=== PATIENT | female | born 1955 | race Caucasian/White ===

== ENCOUNTER 2022-01-24 16:59 | Emergency (ER) | payer OTHER ==
[~2022-01-24] VITALS: Ht 170.2 cm; Wt 90.7 kg
[2022-01-24 17:22] LABS: HEMATOCRIT 34.4 % (31.2-41.9); MEAN CORPUSCULAR HEMOGLOBIN 32.5 uug (24.7-32.8); MEAN CORPUSCULAR VOLUME 95.1 fL (75.5-95.3); PLATELET COUNT (AUTO) 200 K/uL (179-408)
[2022-01-24 17:23] LABS: ABG BASE EXCESS 3.9 mmol/L; ABG HCO3 28.9 mmol/L; ABG PH 7.425 (7.350-7.450); ABG PO2 40.5 mmHg (75.0-100.0); ABG SITE RIGHT BRACHIAL; COHb 0.8 % (0.5-1.5); O2Hb 76.1 % (94.0-97.0); VENT MODE RA
--- NOTE | 2022-01-24 17:29 | NUR ---
Pt out for CT Head w/o contrast.
[2022-01-24 17:36] LABS: CARBON DIOXIDE 30 mmol/L (21-32); CHLORIDE 85 mmol/L (98-107); POTASSIUM 4.3 mmol/L (3.5-5.1); UREA NITROGEN, BLOOD 41 mg/dL (7-18)
[2022-01-24] MEDS ORDERED: INSU100V7 SQ (17:36)
[2022-01-24] MEDS ORDERED: LEVO175T7 PO (17:36)
[2022-01-24] MEDS ORDERED: FAMO20TA8 PO (17:36)
[2022-01-24] MEDS ORDERED: APIX5TAB4 PO (17:36)
[2022-01-24] MEDS ORDERED: SUCR1TAB31 PO (17:36)
[2022-01-24] MEDS ORDERED: ONDA-104 PO (17:36)
[2022-01-24] MEDS ORDERED: SEVE800T8 PO (17:36)
[2022-01-24] MEDS ORDERED: AMIO200T5 PO (17:36)
[2022-01-24] MEDS ORDERED: HYDR-4077 PO (17:36)
[2022-01-24] MEDS ORDERED: INSU200I SQ (17:36)
[2022-01-24] MEDS ORDERED: CLON1PAT2 TD (17:36)
[2022-01-24] MEDS ORDERED: METO25TA6 PO (17:36)
[2022-01-24] MEDS ORDERED: ATOR20TA PO (17:36)
[2022-01-24] MEDS ORDERED: NIFE10CA2 PO (17:36)
[2022-01-24] MEDS ORDERED: NITR0.4T48 SL (17:36)
[2022-01-24] MEDS ORDERED: CLON0.5T4 PO (17:36)
[2022-01-24] MEDS ORDERED: BENA20TA9 PO (17:36)
[2022-01-24 17:45] LABS: CREATININE 8.3 mg/dL (0.6-1.3); GLUCOSE 447 mg/dL (74-106)
--- NOTE | 2022-01-24 18:12 | NUR ---
Pt gets dialysis and is mostly anuric, so getting a sample will be delayed.
[2022-01-24] MEDS ORDERED: INSULIN REGULAR, HUMAN 300 UNIT/3 ML VIAL ONE (19:00)
[2022-01-24] MEDS ORDERED: INSULIN REGULAR, HUMAN 300 UNIT/3 ML VIAL IV ONE (19:00)
--- NOTE | 2022-01-24 19:25 | NUR ---
Endorsed to Agustin ENRIQUE.
[2022-01-24 23:31] VITALS: BP 120/70
--- NOTE | 2022-01-24 23:31 | NUR ---
Patient discharged to home in stable condition. Written and verbal after care instructions given. Patient verbalizes understanding of instructions. Stressed follow up or return to ER for worsening s/s.
== END 2022-01-24 23:33 | disposition home or self-care (01) ==
LOC: ER 17:01
DX: E11.22 Type 2 diabetes mellitus with diabetic chronic kidney disease (principal); E11.65 Type 2 diabetes mellitus with hyperglycemia; N18.6 End stage renal disease; Z99.2 Dependence on renal dialysis; E78.5 Hyperlipidemia, unspecified; I12.0 Hypertensive chronic kidney disease with stage 5 chronic kidney disease or end stage renal disease; Z85.038 Personal history of other malignant neoplasm of large intestine; Z79.01 Long term (current) use of anticoagulants; Z79.4 Long term (current) use of insulin; Z79.899 Other long term (current) drug therapy; Z79.890 Hormone replacement therapy; M81.0 Age-related osteoporosis without current pathological fracture; R94.31 Abnormal electrocardiogram [ECG] [EKG]
CPT/HCPCS: 99285; 96374; 70450; 80048; 82009; 82962; 85025; 93005; 36600; J1815; A4663; J7040